=== PATIENT | female | born 1940 | race Caucasian/White ===

== ENCOUNTER → 2018-12-28 | Outpatient (CLI) | payer MEDICARE, OTHER ==
[~2018-12-28] MED LIST: AMAN100 PO; IRBE150 PO; LEVSOD50 PO; NIFE30ER PO; RASA1 PO; Toprol Xl50 MG PO
== END | disposition home or self-care (01) ==
LOC: LAB SHORT 12:53 → LAB EV 12:53
DX: N39.0 Urinary tract infection, site not specified (principal)
CPT/HCPCS: 87077; 87086; 87186

== ENCOUNTER → 2020-05-04 | Outpatient (CLI) | payer MEDICARE, OTHER ==
[2020-05-04 14:35] LABS: Appearance, Urine Turbid (Clear); Bilirubin, Urine Neg (Neg); Blood, Urine 3+ (Neg); Color, Urine Yellow (P-Yellow); Glucose Qualitative, Urine Neg (Neg); Ketones, Urine Neg (Neg); Leukocyte Esterase, Urine 3+ (Neg); Nitrite, Urine Pos (Neg); Protein, Urine 3+ (Neg); Urobilinogen, Urine NORM (Normal)
[2020-05-04 14:56] LABS: Triple Phosphate Crystals Few /hpf
[2020-05-04 14:57] LABS: Bacteria Many /hpf; Calcium Oxalate Crystals Few /hpf; Squamous Epithelial Cells Few /hpf (Few); White Blood Cells, Urine TNTC /hpf (0-5)
== END | disposition home or self-care (01) ==
LOC: LAB SHORT 11:00 → LAB 11:00 → LAB SHORT 11:44
PROVIDERS: Physician Assistant
DX: R30.9 Painful micturition, unspecified (principal)
CPT/HCPCS: 81001; 87077; 87086; 87186

== ENCOUNTER → 2020-05-06 | Outpatient (CLI) | payer MEDICARE, OTHER | LOC: LAB SHORT 13:31 → LAB 13:31 | DX: N39.0 Urinary tract infection, site not specified (principal) | CPT/HCPCS: 87077; 87086; 87186 ==

== ENCOUNTER → 2020-06-06 | Outpatient (CLI) | payer MEDICARE | END | disposition home or self-care (01) | LOC: LAB EV 10:12 → LAB SHORT 10:12 | DX: N39.0 Urinary tract infection, site not specified (principal) | CPT/HCPCS: 87077; 87086; 87186 ==

== ENCOUNTER → 2021-02-28 | Outpatient (CLI) | payer MEDICARE, OTHER | END | disposition home or self-care (01) | LOC: LAB 12:27 → LAB SHORT 12:27 | DX: D48.5 Neoplasm of uncertain behavior of skin (principal) | CPT/HCPCS: 88305 ==

== ENCOUNTER → 2022-01-20 | Outpatient (CLI) | payer MEDICARE, OTHER | END | disposition home or self-care (01) | LOC: LAB SHORT 15:14 → LAB 15:14 | DX: N39.0 Urinary tract infection, site not specified (principal) | CPT/HCPCS: 87086 ==

== ENCOUNTER → 2022-02-01 | Outpatient (CLI) | payer MEDICARE, OTHER ==
[2022-02-01 13:15] LABS: Albumin, Blood 3.9 g/dL (3.4-5.0); Albumin/Globulin Ratio 1.2 (0.8-1.8); Bilirubin, Total 0.7 mg/dL (0.1-1.0); Bun/Creatinine Ratio 18.9 (12.0-20.0); Calcium, Blood 9.7 mg/dL (8.5-10.1); Creatinine, Blood 1.59 mg/dL (0.40-1.00); Globulin, Blood 3.2 g/dL (2.2-4.0); Potassium, Blood 3.7 mmol/L (3.5-5.5); Total Protein, Blood 7.1 g/dL (6.4-8.2)
== END | disposition home or self-care (01) ==
LOC: LAB SHORT 12:55
PROVIDERS: Physician Assistant
DX: I10 Essential (primary) hypertension (principal); R60.9 Edema, unspecified
CPT/HCPCS: 80053; 83880

== ENCOUNTER 2022-02-12 17:11 | Inpatient (IN) | payer MEDICARE, OTHER ==
[~2022-02-12] VITALS: Ht 149.9 cm; Wt 54.0 kg
[~2022-02-12 17:11] MED LIST changes: +Avapro300 MG PO; -IRBE150 PO
[2022-02-12] MEDS ORDERED: POTCHL20ER PO (20:04)
[2022-02-12] MEDS ORDERED: CATAPRES-TTS 31 EAC2 (20:04)
[2022-02-12 22:24] LABS: BASOPHILS ABSOLUTE AUTO 0.09 K/mm3 (0.00-0.23); BASOPHILS PERCENT AUTO 1 % (0-2); EOSINOPHILS ABSOLUTE AUTO 0.21 K/mm3 (0.00-0.68); EOSINOPHILS PERCENT AUTO 3 % (0-6); Hemoglobin 12.1 g/dL (11.5-16.0); IMMATURE GRAN ABSOLUTE AUTO 0.02 K/mm3 (0.00-0.10); IMMATURE GRAN PERCENT AUTO 0 % (0-1); LYMPHOCYTES ABSOLUTE AUTO 1.69 K/mm3 (0.84-5.20); LYMPHOCYTES PERCENT AUTO 26 % (21-46); MONOCYTES ABSOLUTE AUTO 0.78 K/mm3 (0.16-1.47); MONOCYTES PERCENT AUTO 12 % (4-13); Mean Corpuscular HGB 28.9 pg (26.0-34.0); Mean Corpuscular HGB Conc 32.7 g/dL (31.5-36.5); Mean Corpuscular Volume 89 fL (80-100); Mean Platelet Volume 11.5 fL (9.1-12.4); NEUTROPHILS ABSOLUTE AUTO 3.64 K/mm3 (1.96-9.15); NEUTROPHILS PERCENT AUTO 57 % (41-73); Platelet Count 241 K/mm3 (150-400); RDW Coefficient Variation 13.2 % (11.7-14.2); RDW Standard Deviation 43.5 fL (35.1-46.3); Red Blood Cell Count 4.18 M/mm3 (3.80-5.20); White Blood Cell Count 6.43 K/mm3 (4.00-11.30)
[2022-02-13] MEDS ORDERED: RASA1 PO (00:18)
[2022-02-13] MEDS ORDERED: NIFE60ER PO (00:20)
[2022-02-13] MEDS ORDERED: METOPROLOL SUCC25 MG PO (00:20)
[2022-02-13] MEDS ORDERED: EUTHYROX50 MC1 PO (00:21)
[2022-02-13] MEDS ORDERED: CLON.2 PO (00:22)
[2022-02-13] MEDS ORDERED: IRBESARTAN-HCT1 EAC2 PO (00:23)
[2022-02-13] MEDS ORDERED: K-Dur20 MEQ PO (00:24)
[2022-02-13] MEDS ORDERED: BUMETANIDE0.5 M6 PO (00:25)
[2022-02-13 02:42] LABS: Source, Urine Clean Catch
[2022-02-13 02:44] LABS: Appearance, Urine Clear (Clear); Bilirubin, Urine Neg (Neg); Blood, Urine Neg (Neg); Glucose Qualitative, Urine Neg (Neg); Ketones, Urine Neg (Neg); Leukocyte Esterase, Urine 2+ (Neg); Nitrite, Urine Neg (Neg); Protein, Urine Neg (Neg); Urobilinogen, Urine NORM (Normal)
[2022-02-13 02:53] LABS: Color, Urine Pale Yellow (P-Yellow)
[2022-02-13 02:57] LABS: Bacteria Mod /hpf; Red Blood Cells, Urine 0-2 /hpf (0-2); Squamous Epithelial Cells Few /hpf (Few)
--- NOTE | 2022-02-13 05:05 | NUR ---
NEW ADMIT/GREASE MAKER SUMMARY PT ARRIVED TO ROOM AT 2355; ADMIT W/ACUTE RENAL FAILURE--PT SENT FROM [facility]; INITAL LABS DRAWN THERE--GFR 12; CREATININE 3.76; BUN 68. PT XFERED T/BED W/SLIDER SHEET AND 3 STAFF. A/OX4 W/SOME FORGETFULLNESS. PLEASANT AND COOPERATVE. NOTED TREMORS. PT HX OF PARKINSONS. PT T/BSC W/FWW AND GAITBELT X2. PT VERY WEAK AND HAS SOME CONFUSION W/MOVEMENT. IV TO LEFT AC; NS INFUSION 75MLS HR. LUNGS CLEAR. SKIN INTACT W/SOME AGE RELATED ECCHYMOSIS. PT REPORTS FREQ URINATION/URGENCY. ADMIN HEPARIN INJ AND 20 MEQ POTASSIUM PO. CATAPRES PATCH ORDERED IN ERROR--SWTICHED TO PO BID TO START 0900. PT BP ELEVATED. PT ORIENTED TO ROOM AND CALL LIGHT; HIGH FALL RISK. CALL LIGHT IN REACH AND BED LOCKED/LOW POSITION.
[2022-02-13 05:12] LABS: BASOPHILS ABSOLUTE AUTO 0.08 K/mm3 (0.00-0.23); BASOPHILS PERCENT AUTO 1 % (0-2); EOSINOPHILS ABSOLUTE AUTO 0.27 K/mm3 (0.00-0.68); EOSINOPHILS PERCENT AUTO 5 % (0-6); Hematocrit 35.9 % (33.0-51.0); Hemoglobin 11.7 g/dL (11.5-16.0); IMMATURE GRAN ABSOLUTE AUTO 0.02 K/mm3 (0.00-0.10); IMMATURE GRAN PERCENT AUTO 0 % (0-1); LYMPHOCYTES ABSOLUTE AUTO 1.25 K/mm3 (0.84-5.20); LYMPHOCYTES PERCENT AUTO 22 % (21-46); MONOCYTES ABSOLUTE AUTO 0.68 K/mm3 (0.16-1.47); MONOCYTES PERCENT AUTO 12 % (4-13); Mean Corpuscular HGB 28.8 pg (26.0-34.0); Mean Corpuscular HGB Conc 32.6 g/dL (31.5-36.5); Mean Corpuscular Volume 88 fL (80-100); Mean Platelet Volume 12.2 fL (9.1-12.4); NEUTROPHILS ABSOLUTE AUTO 3.51 K/mm3 (1.96-9.15); NEUTROPHILS PERCENT AUTO 61 % (41-73); Platelet Count 241 K/mm3 (150-400); RDW Coefficient Variation 13.4 % (11.7-14.2); RDW Standard Deviation 43.4 fL (35.1-46.3); Red Blood Cell Count 4.06 M/mm3 (3.80-5.20); White Blood Cell Count 5.81 K/mm3 (4.00-11.30)
[2022-02-13 05:49] LABS: Albumin, Blood 3.9 g/dL (3.4-5.0); Albumin/Globulin Ratio 1.2 (0.8-1.8); Bilirubin, Total 1.3 mg/dL (0.1-1.0); Calcium, Blood 9.8 mg/dL (8.5-10.1); Creatinine, Blood 3.62 mg/dL (0.40-1.00); Globulin, Blood 3.3 g/dL (2.2-4.0); Potassium, Blood 3.4 mmol/L (3.5-5.5); Total Protein, Blood 7.2 g/dL (6.4-8.2)
[2022-02-13 14:18] LABS: Anion Gap 9 mmol/L (6-16); Blood Urea Nitrogen 75 mg/dL (8-24); Bun/Creatinine Ratio 20.7 (12.0-20.0); CO2, Blood 32 mmol/L (21-32); Calcium, Blood 9.9 mg/dL (8.5-10.1); Chloride, Blood 99 mmol/L (98-108); Creatinine, Blood 3.63 mg/dL (0.40-1.00); Glomerular Filtration Rate 12 (60-); Glucose, Blood 119 mg/dL (70-99); Phosphorus, Blood 4.1 mg/dL (2.5-4.9); Potassium, Blood 3.7 mmol/L (3.5-5.5); Sodium, Blood 140 mmol/L (136-145)
--- NOTE | 2022-02-13 18:31 | NUR ---
SHIFT SUMMARY PATIENT ALERT, PLEASANT, AND COOPERATIVE. SOMETIMES CONFUSED. SBA UP TO CHAIR, BSC WITH CANE. TOLERATING REGULAR DIET AND LIQUIDS. POWERGLIDE PLACE THIS SHIFT. 1/2 NS AT 125 PER HOUR. TELE NSR 80S. PLAN TO CONTINUE TO HYDRATE AND RECHECK LABS IN AM TO SEE IF KIDNEY FX IMPROVES. DR HUNG CONSULTED. FAMILY PRESENT IN THE ROOM SEVERAL TIMES DURING DAY.
[2022-02-14 05:44] LABS: Hemoglobin 10.7 g/dL (11.5-16.0)
[2022-02-14 06:13] LABS: Albumin, Blood 3.4 g/dL (3.4-5.0); Anion Gap 9 mmol/L (6-16); Blood Urea Nitrogen 60 mg/dL (8-24); CO2, Blood 28 mmol/L (21-32); Calcium, Blood 9.3 mg/dL (8.5-10.1); Chloride, Blood 102 mmol/L (98-108); Creatinine, Blood 2.61 mg/dL (0.40-1.00); Glomerular Filtration Rate 18 (60-); Glucose, Blood 93 mg/dL (70-99); Magnesium, Blood 2.2 mg/dL (1.6-2.4); Phosphorus, Blood 3.2 mg/dL (2.5-4.9); Potassium, Blood 3.2 mmol/L (3.5-5.5); Sodium, Blood 139 mmol/L (136-145)
--- NOTE | 2022-02-14 06:45 | NUR ---
SHIFT SUMMARY; PT WITH NO ACUTE CHANGES OVERNIGHT. THE PT REMAINS STABLE ON RA. SAW PT THIS AM, ORDERED A ONE TIME DOSE OF POTASSIUM AND CHANGED 1/2 NS INFUSION TO NS INFUSION. PT RESTED IN BED ALL NIGHT, PT USED CALL LIGHT APPROPRIATELY TO COMUNICATE NEEDS THROUGHOUT THE NIGHT. PT CONTINUES TO DENY ANY PAIN OR DISCOMFORT AT THIS POINT.
--- NOTE | 2022-02-14 17:18 | NUR ---
PATIENT IS ALERT AND ORIENTED AND COOPERATIVE WITH CARE. NS AT 75/HR. PATIENT SAT UP IN THE CHAIR FOR A COUPLE HOURS TODAY. FAMILY IS AT THE BEDSIDE. PT AND OT WORKED WITH HER TODAY. 1PA WITH FWW OR CANE AND GAITBELT. HYPERTENSIVE THIS MORNING, MEDICATED PER EMAR. FAMILY WOULD LIKE TO EXPLORE OPTIONS FOR IN HOME CARE PRIOR TO DISCHARGE.
[2022-02-15 06:42] LABS: Albumin, Blood 3.5 g/dL (3.4-5.0); Anion Gap 6 mmol/L (6-16); Blood Urea Nitrogen 51 mg/dL (8-24); Bun/Creatinine Ratio 24.9 (12.0-20.0); CO2, Blood 27 mmol/L (21-32); Calcium, Blood 9.4 mg/dL (8.5-10.1); Chloride, Blood 109 mmol/L (98-108); Creatinine, Blood 2.05 mg/dL (0.40-1.00); Glomerular Filtration Rate 24 (60-); Glucose, Blood 95 mg/dL (70-99); Phosphorus, Blood 3.1 mg/dL (2.5-4.9); Potassium, Blood 3.6 mmol/L (3.5-5.5); Sodium, Blood 142 mmol/L (136-145)
[2022-02-15 06:44] LABS: BASOPHILS ABSOLUTE AUTO 0.08 K/mm3 (0.00-0.23); BASOPHILS PERCENT AUTO 2 % (0-2); EOSINOPHILS ABSOLUTE AUTO 0.24 K/mm3 (0.00-0.68); EOSINOPHILS PERCENT AUTO 5 % (0-6); Hematocrit 32.7 % (33.0-51.0); Hemoglobin 10.6 g/dL (11.5-16.0); IMMATURE GRAN ABSOLUTE AUTO 0.01 K/mm3 (0.00-0.10); IMMATURE GRAN PERCENT AUTO 0 % (0-1); LYMPHOCYTES ABSOLUTE AUTO 1.37 K/mm3 (0.84-5.20); LYMPHOCYTES PERCENT AUTO 26 % (21-46); MONOCYTES PERCENT AUTO 11 % (4-13); Mean Corpuscular HGB 28.9 pg (26.0-34.0); Mean Corpuscular HGB Conc 32.4 g/dL (31.5-36.5); Mean Corpuscular Volume 89 fL (80-100); Mean Platelet Volume 12.2 fL (9.1-12.4); NEUTROPHILS ABSOLUTE AUTO 3.03 K/mm3 (1.96-9.15); NEUTROPHILS PERCENT AUTO 57 % (41-73); Platelet Count 223 K/mm3 (150-400); RDW Coefficient Variation 13.2 % (11.7-14.2); RDW Standard Deviation 42.9 fL (35.1-46.3); Red Blood Cell Count 3.67 M/mm3 (3.80-5.20); White Blood Cell Count 5.33 K/mm3 (4.00-11.30)
--- NOTE | 2022-02-15 07:38 | NUR ---
Shift Summary Pt AOx2-4, has some moments of confusion about current situation. Hx of parkinsons, pt is unstable on her feet. She was 1 assist to BSC with FWW and GB. Refused heparin because she thought a doctor told her it has a negative interaction with another medication, updated white board with this information. Rcvd NS@75. VSS, although family was concerned about hypotension when her BP was 109/49 at 1925. No dizzyness or lightheadedness when laying or ambulating. Pleasant and cooperative wit hcare.
--- NOTE | 2022-02-15 12:10 | NUR ---
RN NOTE MS SORIA IS ORIENTATED TO SELF, TO [place], BUT NOT TO [facility], TO MONTH AND YEAR. AFTER THINKING ABOUT IT SHE REMEMBERED THAT SHE IS HERE BECAUSE OF A PROBLEM WITH HER KIDNEYS. C/O CHRONIC R HIP PAIN THIS AM THAT SHE SAID SHE'S HAD FOR MANY YEARS, TREATS BY REPOSITIONING. SHE WAS ASSISTED UP TO THE CHAIR USING GAIT BELT AND 2 PERSON ASSIST. UNSTEADY SHUFFLING GAIT TO THE CHAIR. GOOD FAMILY SUPPORT HERE TODAY. +PARKINSONS TREMORS. IVF TO POWERGLIDE IV AT 50CC/HR. BED AND CHAIR ALARMS IN USE.
--- NOTE | 2022-02-15 17:57 | NUR ---
SHIFT SUMMARY SEE PRIOR NOTE. MS YANG HAS NAPPED THIS AFTERNOON, FAMILY/VISITORS AT BEDSIDE SHOWING GOOD SUPPORT. C/O RIGHT HIP DISCOMFORT EASED WITH REPOSITIONING AND HEATING PAD. UP TO BSC AND TO CHAIR WITH GAIT BELT, WALKER AND 2 PERSON ASSIST, SHUFFLING GAIT. UP FOR MEALS IN HER CHAIR AND TOLERATING AROUND 50% OF MEALS. PT FORGETFUL, NEEDS REMINDING/REINFORCEMENT OF INSTRUCTIONS. BED AND CHAIR ALARMS IN USE. CALL LIGHT IN REACH.
--- NOTE | 2022-02-16 07:47 | NUR ---
Shift Summary Pt AOx3-4, hx of Parkinsons and unsteady on her feet. She is 1 assist w/ FWW and GB to BSC. She is oriented to her own ability, calls appropriatly. Rcvd NS@50. Pt was hypertensive tonight 184/59, asymptomatic. Pleasant and cooperative with care.
[2022-02-16 09:02] LABS: Hematocrit 34.3 % (33.0-51.0); Hemoglobin 11.3 g/dL (11.5-16.0)
[2022-02-16 09:18] LABS: Albumin, Blood 3.8 g/dL (3.4-5.0); Anion Gap 6 mmol/L (6-16); Blood Urea Nitrogen 40 mg/dL (8-24); Bun/Creatinine Ratio 25.5 (12.0-20.0); CO2, Blood 26 mmol/L (21-32); Calcium, Blood 9.7 mg/dL (8.5-10.1); Chloride, Blood 110 mmol/L (98-108); Creatinine, Blood 1.57 mg/dL (0.40-1.00); Glomerular Filtration Rate 33 (60-); Glucose, Blood 121 mg/dL (70-99); Magnesium, Blood 1.8 mg/dL (1.6-2.4); Phosphorus, Blood 2.2 mg/dL (2.5-4.9); Potassium, Blood 3.5 mmol/L (3.5-5.5); Sodium, Blood 142 mmol/L (136-145)
--- NOTE | 2022-02-16 10:27 | NUR ---
RN NOTE MS SORIA IS SITTING UP IN THE CHAIR. CHAIR ALARM IN PLACE. SHE NEEDED ASSISTANCE GETTING UP TO THE CHAIR, GAIT BELT, WALKER AND FREQUENT REMINDERS OF WHAT TO DO, HOW TO REACH FOR THE CHAIR, WHERE TO MOVE HER FEET TO. SHE WAS UNABLE TO SIT ON THE EDGE OF THE BED BY HERSELF, NEEDING ASSISTANCE. SHUFFLING UNSTEADY GAIT. SHE WAS ABLE TO TELL ME HER NAME, MONTH, YEAR, THAT SHE'S AT [facility] FOR HER KIDNEYS THIS MORNING. IVF CONTINUE AT 50CC/HR. FAMILY AT BEDSIDE AND VERY SUPPORTIVE. SHE DENIED R HIP PAIN THIS MORNING. BP NOTED TO BE ELEVATED AT 185 SYTOLIC. I WAS GOING TO GIVE PRN HYDRALAZINE, BUT RECHECK PRIOR TO MED WAS 14OS SYSTOLIC. CALL LIGHT IN REACH.
--- NOTE | 2022-02-16 11:32 | NUR ---
RN NOTE MS YANG C/O FEELING CONSTIPATED. UPT TO BSC, VOIDED, NO BM. ORDERS FROM DR ACEVES FOR COLACE AND SENNA SCHEDULED AND MIRILAX PRN ENTERED INTO mymission2.
--- NOTE | 2022-02-16 14:36 | NUR ---
Pt sitting in chair upon arrival. Pt's spouse and Pt's daughter at bedside. Engaged in therapeutic conversation regarding advanced care planning. Educated on disease process including trajectory of disease and the importance of planning for the future. Offered therapeutic listening and answered questions. Discussed POLSTs and Advanced Directives. Educated on life sutaining treatments including risk factors and implications of CPR. Educated on each section to complete and choices. Family expresses appreciation and report no other concerns. Palliative Care will remain available.
--- NOTE | 2022-02-16 16:46 | NUR ---
SHIFT SUMMARY SEE PRIOR NOTE. MS SORIA HAS STRONG FAMILY SUPPORT. ANUEL, GEOTECHNICAL INTERN ORGANISED [facility] PLACEMENT AND TRANSFER, BUT FAMILY HAVE ORGANISED ASSISTED LIVING THAT ANUEL SAID SHE CAN CO-ORDINATE WITH HOME HEALTH SERVICES. ANUEL NOTIFIED DR ACEVES THAT SHE WILL NOT BE GETTING DISCHARGED FROM [facility] TODAY. MS SORIA CONTINUES TO BE FORGETFUL, SHE IS DOING BETTER TRANSFERING TO THE BEDSIDE COMMODE AND CHAIR BUT STILL NEEDS FREQUENT REMINDERS HOW TO DO THE TRANSFER. SHE C/O FEELING CONSTIPATED, GIVEN MIRILAX WITHOUT RESPONSE YET. SHE HAS DENIED HIP PAIN TODAY. BED AND CHAIR ALARMS IN USE. CALL LIGHT IN REACH.
[2022-02-17 05:05] LABS: Hematocrit 32.5 % (33.0-51.0); Hemoglobin 10.5 g/dL (11.5-16.0)
--- NOTE | 2022-02-17 05:15 | NUR ---
Shift Summary Pt rcving NS @ 50, IV alarming distal occlusion frequently. PG is positional and sensitive. Up to BSC with 1 assist + FWW + GB. AOx3-4, some episodes of mild confusion. C/O feeling constipated, rcvd Miralax during day shift and docusate tonight. No BM tonight, last BM was 02/15/22. Running hypertensive tonight, systolic 140-160, asymptomatic. No acute events, slept well t/o most of the night, pleasant and cooperative with care.
[2022-02-17 05:57] LABS: Albumin, Blood 3.5 g/dL (3.4-5.0); Anion Gap 6 mmol/L (6-16); Blood Urea Nitrogen 33 mg/dL (8-24); Bun/Creatinine Ratio 24.4 (12.0-20.0); CO2, Blood 27 mmol/L (21-32); Calcium, Blood 9.3 mg/dL (8.5-10.1); Chloride, Blood 109 mmol/L (98-108); Creatinine, Blood 1.35 mg/dL (0.40-1.00); Glomerular Filtration Rate 39 (60-); Glucose, Blood 125 mg/dL (70-99); Magnesium, Blood 2.2 mg/dL (1.6-2.4); Sodium, Blood 142 mmol/L (136-145)
--- NOTE | 2022-02-17 11:17 | NUR ---
RN NOTE MS SORIA IS LESS CONFUSED TODAY. ORIENTATED TO SELF, PLACE, DATE AND SITUATION. SHE IS FORGETFUL, BUT LESS THAN YESTERDAY. SHE WALKED INTO THE BATHROOM WITH 1 PERSON ASSISTANCE AND WAS STEADY WITH THE WALKER SO WE WALKED INTO THE HALLS AND SHE DID VERY WELL. NO C/O PAIN. FAMILY HAS BEEN HERE THIS MORNING, UPDATED ON CARE AND THEY SAID SOMEONE FROM [facility] IS COMING TODAY TO EVALUATE PT FOR PLACEMENT THERE. IN CHAIR WITH CHAIR ALARM. CALL LIGHT IN REACH.
--- NOTE | 2022-02-17 17:33 | NUR ---
SHIFT SUMMARY MS WALKER HAS BEEN DOING WELL TODAY, STRENGTH AND GAIT IMPROVING, AMBULATED IN THE HALLS WITH WALKER AND STAND BY ASSISTANCE. NO C/O PAIN TODAY. PLAN TO BE DISCHARGED TOMORROW, WENDY FROM [facility] ASSISTED LIVING EVALUATED HER TODAY AND ACCEPTED HER FOR PLACEMENT. FAMILY AT BEDSIDE. IVF DC'D, SHE IS EATING AND DRINKING QUITE WELL. BED AND CHAIR ALARMS IN USE. CALL LIGHT IN REACH.
--- NOTE | 2022-02-18 04:08 | NUR ---
SHIFT SUMMAR: Pt A/Ox3-4 she can be forgetful so bed alarms/chair alarms utilized for pt safety. Pt had c/o constipation lasting 6 days, as well as heart burn. Machinist Bench isis GAFFNEY MD ordered TUMS and a suppository. Both were given. The supppository was not successful as she did not have a BM yet. Will let day shift nurse be aware. She otherwise denied pain, nausea, SOB. Plan is to d/c this afternooon.
--- NOTE | 2022-02-18 04:41 | NUR ---
UPDATE- hydralazine IV given for systolic BP in the 190's.
[2022-02-18 07:53] LABS: Hematocrit 33.7 % (33.0-51.0); Hemoglobin 11.2 g/dL (11.5-16.0)
[2022-02-18 08:04] LABS: Albumin, Blood 3.6 g/dL (3.4-5.0); Anion Gap 7 mmol/L (6-16); Blood Urea Nitrogen 31 mg/dL (8-24); Bun/Creatinine Ratio 21.4 (12.0-20.0); CO2, Blood 26 mmol/L (21-32); Chloride, Blood 109 mmol/L (98-108); Creatinine, Blood 1.45 mg/dL (0.40-1.00); Glomerular Filtration Rate 36 (60-); Glucose, Blood 103 mg/dL (70-99); Magnesium, Blood 2.1 mg/dL (1.6-2.4); Phosphorus, Blood 2.2 mg/dL (2.5-4.9); Potassium, Blood 3.9 mmol/L (3.5-5.5); Sodium, Blood 142 mmol/L (136-145)
[2022-02-18] MEDS ORDERED: LOSA25 PO (11:59)
[2022-02-18] MEDS ORDERED: SULTRIDS PO (11:59)
== END 2022-02-18 16:10 | disposition home or self-care (01) | DRG 683 ==
LOC: ER 17:11 → MEDS 22:51
PROVIDERS: Family Medicine; Internal Medicine Nephrology; ADMIT Internal Medicine
DX: N17.9 Acute kidney failure, unspecified (principal); N39.0 Urinary tract infection, site not specified; E87.6 Hypokalemia; G20 Parkinson's disease; I12.9 Hypertensive chronic kidney disease with stage 1 through stage 4 chronic kidney disease, or unspecified chronic kidney disease; E03.9 Hypothyroidism, unspecified; E83.39 Other disorders of phosphorus metabolism; E83.42 Hypomagnesemia; E86.9 Volume depletion, unspecified; N18.30 Chronic kidney disease, stage 3 unspecified; D63.1 Anemia in chronic kidney disease; N25.81 Secondary hyperparathyroidism of renal origin; R80.9 Proteinuria, unspecified; R31.9 Hematuria, unspecified; E87.70 Fluid overload, unspecified; Z98.890 Other specified postprocedural states; Z79.899 Other long term (current) drug therapy
CPT/HCPCS: 36415; 71045; 76770; 80053; 80069; 81001; 83735; 83880; 84439; 84443; 85014; 85018; 85025; 87086; 96360; 96361; 97110; 97116; 97162; 97165; 97530; 97535; 99285-25; A9270; J0360; J0696; J1644; J1940; J3475; J7030; J7060